=== PATIENT | female | born 1955 | race Caucasian/White ===

== ENCOUNTER 2019-01-15 05:37 | Observation (INO) | payer BC ==
[2019-01-05 11:27] VITALS: BMI 34.1
[2019-01-15] VITALS (26 sets, daily range): BP systolic 102–137; BP diastolic 55–76; PULSE 60–100; RESP 14–21; Ht 162.6 cm; Wt 89.2 kg
[~2019-01-15] VITALS: Ht 162.6 cm; Wt 89.2 kg
[~2019-01-15 05:37] MED LIST: ACETAMINOPHEN 500 MG TAB PO ONE; CEFAZOLIN 2 GM/50 ML (PMX) 50 ML IVPB ONE; DEXAMETHASONE 4 MG/ML 1 ML INJ IV ONE; LACTATED RINGER'S 1,000 ML IV SCH; TRANEXAMIC ACID 1GM/100ML(PMX) 100 ML INTRA-OP X1 IVPB ONE; TRANEXAMIC ACID 1GM/100ML(PMX) 100 ML PRE-OP X1 IVPB ONE
[2019-01-15] MEDS ORDERED: ACETAMINOPHEN 1000MG/100ML IV 100 ML IVPB ONE (06:00)
[2019-01-15] MEDS ORDERED: TRANEXAMIC ACID 1GM/100ML(PMX) 200 ML ONE (07:04)
[2019-01-15] MEDS ORDERED: POLYMYXIN B 500000 UNIT INJ ONE (07:04)
--- NOTE | 2019-01-15 07:27 | PREAC ---
Date/Time of Note Date/Time of Note DATE: 01/15/19 TIME: 07:26 Anesthesia Eval and Record Evaluation Time Pre-Procedure Interview DATE: 01/15/19 TIME: 07:26 Age 63 Sex female NPO: 8 hrs Preoperative diagnosis right knee osteoarthitis Planned procedure right total total knee replacement Past Medical History Past Medical History: None Surgery & Anesthesia Issues No known issue Meds Anticoagulation: No Beta Surjit within 24 hr: No Reason Beta Surjit not given: Pt. not on B-Surjit No Active Prescriptions or Reported Meds Current Medications Lactated Ringer's 1,000 ml @ 125 mls/hr Q8H IV Last administered on 01/15/19at 06:22; Admin Dose 125 MLS/HR; Start 01/15/19 at 05:30; Stop 01/15/19 at 13:29 Meds reviewed: Yes Allergies Coded Allergies: codeine (Verified Adverse Reaction, Unknown, constipation, sick feeling, 01/15/19) Allergies Reviewed: Yes Labs/Studies Labs Reviewed: Reviewed by anesthesiologist Blood Bank Test 01/15/19 06:14 Antibody Screen NEGATIVE Blood Type A POSITIVE test: N/A Pre-procedure Exam Last vitals Vital Signs Date Temp Pulse Resp B/P (MAP) Pulse Ox O2 O2 Flow FiO2 Time Delivery Rate 01/15/19 97.9 73 18 137/64 95 Room Air 06:36 (88) Airway: Adequate mouth opening, Adequate thyromental dist Mallampati: Mallampati IV Teeth: Normal Lung: Normal Heart: Normal ASA Physical Status ASA physical status: 1 Emergency: None Pre-operative Attestations Prior to commencing anesthesia and surgery, the patient was re-evaluated, there was verification of: *The patient's identity *The results of appropriate recent lab work and preoperative vital signs *The above evaluation not changing prior to induction *Anesthetic plan, risk benefits, alternative and complications discussed with patient/family; questions answered; patient/family understands, accepts and wishes to proceed. REKHA ROSENBAUM DO Jan 15, 2019 07:27
[2019-01-15] MEDS ORDERED: PROPOFOL 20 ML ONE (07:29)
[2019-01-15] MEDS ORDERED: ETOMIDATE 20 MG INJ ONE (07:29)
[2019-01-15] MEDS ORDERED: MIDAZOLAM 1 MG/ML 2 ML INJ ONE (07:29)
[2019-01-15] MEDS ORDERED: HYDROmorphONE 1 MG/5 ML IV SYRINGE IV PRN ×3 (07:30)
[2019-01-15] MEDS ORDERED: FENTAnyl 50 MCG/ML VIAL ONE (07:30)
[2019-01-15] MEDS ORDERED: LIDOCAINE 1% (MDV) 20 ML INJ ONE (07:30)
--- NOTE | 2019-01-15 07:30 | HPN ---
Date/Time of Note Date/Time of Note DATE: 01/15/19 TIME: 07:30 Interval H&P Admission Note Pt. seen H&P reviewed: No system changes DULCE MARIA SCHRADER Jan 15, 2019 07:30
[2019-01-15] MEDS ORDERED: CEFAZOLIN 1 GM INJ ONE (07:54)
[2019-01-15] MEDS ORDERED: DEXAMETHASONE 4 MG/ML 5 ML INJ ONE (07:54)
[2019-01-15] MEDS ORDERED: ONDANSETRON 4 MG INJ ONE (07:54)
[2019-01-15] MEDS ORDERED: POLYMYXIN B 500000 UNIT INJ IRR ONE (08:14)
[2019-01-15] MEDS ORDERED: BACITRACIN 50000 UNITS INJ IRR ONE (08:14)
[2019-01-15] MEDS ORDERED: ROPIVACAINE 0.5 % 30 ML VIAL ONE (08:58)
[2019-01-15] MEDS ORDERED: EPHEDrine 25 MG/5 ML SYG ONE (09:02)
[2019-01-15] MEDS ORDERED: PHENYLephrine (100 MCG/ML) 10ML SYG ONE (09:02)
--- NOTE | 2019-01-15 09:04 | SIPON ---
Date/Time of Note Date/Time of Note DATE: 01/15/19 TIME: 09:03 Operative Report Preoperative Diagnosis Right knee osteoarthritis Postoperative Diagnosis Same Operation/Procedure Performed Right total knee replacement Surgeon see signature line financial assistance specialist Dav Ruano Anesthesia: spinal Estimated blood loss: 150 - 200 ml's Transfusion Required none Specimen None Grafts/Implants Attune knee, size 6 femur, size 5 tibia, 7 polyethylene and 35 patella Complications none DULCE MARIA SCHRADER Jan 15, 2019 09:04
[2019-01-15] MEDS: LACTATED RINGER'S 1,000 ML IV SCH ×2 (09:08→18:15)
--- NOTE | 2019-01-15 09:08 | OPR ---
Date/Time of Note Date/Time of Note DATE: 01/15/19 TIME: 09:04 Operative Report Procedure Date: Jan 15, 2019 Preoperative Diagnosis Right knee osteoarthritis Postoperative Diagnosis Same Operation/Procedure Performed Right total knee replacement Surgeon see signature line Stenciler Dav Ruano Anesthesia Type: spinal Estimated Blood Loss: 150 - 200 ml's Transfusion none Specimen Bone Grafts/Implants Attune knee, size 6 femur, size 5 tibia, 7 mm polyethylene and 35 patella Tubes/Drains None Complications none Pt Condition Post Procedure: stable Disposition: PACU Indications The patient is a 63-year-old female with advanced osteoarthritis of her right knee Procedure Description Patient was placed supine on the operating room table. Patient was given preoperative antibiotics. The right knee was prepped and draped in usual manner. An anterior incision was made. A mid vastus approach was used in the knee exposed. The patella was displaced laterally without everting it. Using intramedullary alignment, the distal femoral cut was made in 5 degrees of valgus. The femur was measured to be a size 6 from the attune knee system. Anterior posterior and chamfer cuts were made. A notch was cut in the distal femur to accommodate the posterior stabilized femoral component. The PCL was sacrificed and remnants of the menisci were removed. The tibia was cut using external alignment of the patella cut using a freehand technique. Trials were inserted including a 6 femur, 5 tibia, 7 mm of polyethylene and 35 patella. This resulted in a stable knee from 0 to 120 degrees with good balance and tracking. X-rays confirm proper alignment of the implants. Once satisfactory alignment was confirmed the trials were removed. The knee was thoroughly irrigated and dried. Osteophytes were removed. Final components were cemented in place including a 6 narrow femur, 5 tibia, 35 patella and 7 mm of polyethylene excess cement was removed and the knee injected with pain cocktail. Hemostasis was confirmed with aqua Mantis. The wound was closed in layers using #1 strata fix for deep fascia, 2-0 Vicryl for subcutaneous tissue and 3-0 Monocryl for the skin. Patient was transferred to the recovery room in stable condition DULCE MARIA SCHRADER Jan 15, 2019 09:08
[2019-01-15] MEDS ORDERED: NACL 0.9% 3 ML SYG IV SCH (09:30)
[2019-01-15] MEDS ORDERED: MAGNESIUM HYDROXIDE 30ML CUP PO PRN (09:30)
[2019-01-15] MEDS ORDERED: oxyCODONE 5 MG TAB PO PRN (09:30)
[2019-01-15] MEDS ORDERED: KETOROLAC 15 MG INJ IV PRN (09:30)
[2019-01-15] MEDS ORDERED: NALOXONE (0.4 MG/ML) INJ IV PRN (09:30)
[2019-01-15] MEDS: CEFAZOLIN 2 GM/50 ML (PMX) 50 ML IVPB SCH ×2 (10:31→18:14)
[2019-01-15] MEDS: GABAPENTIN 100 MG CAP PO SCH ×2 (13:30→21:55)
--- NOTE | 2019-01-15 13:52 | HP ---
Date/Time of Note Date/Time of Note DATE: 01/15/19 TIME: 13:35 Assessment/Plan VTE Prophylaxis SCD applied (from Nsg): Yes Pharmacological prophylaxis: NA/contraindicated Pharm contraindication: surgical contra Lines/Catheters IV Catheter Type (from Nrsg): Peripheral IV Assessment/Plan Assessment/Plan -Right knee osteoarthritis, status post right total knee replacement by Dr. Mullins. Continue postoperative antibiotic. Continue oral oxycodone and Toradol as needed for pain and Zofran as needed for nausea. Physical therapy. -Chronic low back pain -Obesity with BMI of 33.8 Further recommendations based on clinical course. Plan of care discussed with Dr. Ovalle. HPI/ROS Admit Date/Time Admit Date/Time Jan 15, 2019 at 09:39 Hx of Present Illness The patient is a 63-year-old pleasant female with history of advanced osteoarthritis of the right knee. Patient denies any chronic condition except for chronic lower back pain and osteoarthritis for which she takes ibuprofen occasionally. Patient was brought to the hospital and underwent a right total knee replacement by Dr. Mullins. Postoperatively patient experiencing moderate pain and patient is admitted for further evaluation and management. ROS Constitutional: no complaints Respiratory: no complaints Cardiovascular: no complaints Gastrointestinal: no complaints Genitourinary: no complaints Skin: no complaints Neurologic: no complaints Endocrine: no complaints PMH/Family/Social Past Medical History Medical History: other (Osteoarthritis, chronic back pain, obesity) Medications Current Medications Hydromorphone HCl (Dilaudid) 0.2 mg PACU PRN IV MILD PAIN 1-3; Start 01/15/19 at 07:30; Stop 01/15/19 at 16:00 Hydromorphone HCl (Dilaudid) 0.4 mg PACU PRN IV MOD PAIN 4-6; Start 01/15/19 at 07:30; Stop 01/15/19 at 16:00 Hydromorphone HCl (Dilaudid) 0.6 mg PACU PRN IV SEVERE PAIN 7-10; Start 01/15/19 at 07:30; Stop 01/15/19 at 16:00 Lactated Ringer's 1,000 ml @ 80 mls/hr [id number] IV ; Start 01/15/19 at 09:08 IV Flush (NS 3 ml) 3 ml PER PROTOCOL IV ; Start 01/15/19 at 09:30 Oxycodone HCl (Roxicodone) 10 mg Q4H PRN PO .PAIN; Start 01/15/19 at 09:30 Oxycodone HCl (Roxicodone) 5 mg Q4H PRN PO .PAIN; Start 01/15/19 at 09:30 Ketorolac Tromethamine (Toradol) 15 mg Q6H PRN IV .PAIN Last administered on 01/15/19at 12:42; Admin Dose 15 MG; Start 01/15/19 at 09:30; Stop 01/17/19 at 09:29 Ondansetron HCl (Zofran Inj) 4 mg Q4H PRN IV NAUSEA/VOMITING; Start 01/16/19 at 09:30 Cefazolin Sodium/ Dextrose 50 ml @ 100 mls/hr Q8H IVPB Last administered on 01/15/19at 10:31; Admin Dose 100 MLS/HR; Start 01/15/19 at 09:30; Stop 01/15/19 at 17:59 Celecoxib (Celebrex) 100 mg BID PO ; Start 01/16/19 at 09:00 Gabapentin (Neurontin) 100 mg TID PO Last administered on 01/15/19at 13:30; Admin Dose 100 MG; Start 01/15/19 at 13:00 Pantoprazole (Protonix Tab) 40 mg DAILY@06 PO ; Start 01/17/19 at 06:00 Docusate Sodium (Colace) 200 mg BID PO ; Start 01/16/19 at 09:00; Stop 01/19/19 at 08:59 Magnesium Hydroxide (Milk Of Mag) 30 ml HS PRN PO .CONSTIPATION; Start 01/15/19 at 09:30 Naloxone HCl (Narcan) 0.2 mg Q2M PRN IV .RESP RATE; Start 01/15/19 at 09:30 Aspirin (Halfprin) 81 mg BID PO ; Start 01/16/19 at 09:00 Coded Allergies: codeine (Verified Adverse Reaction, Unknown, constipation, sick feeling, 01/15/19) Past Surgical History Past Surgical Hx: other (Let us post right knee surgery for meniscal tear, status post cataract surgery, status post cholecystectomy) Family History Significant Family History: no pertinent family hx Social History Alcohol Use: none Smoking Status: Never smoker Drug Use: none Exam/Review of Systems Vital Signs Vitals Vital Signs Date Temp Pulse Resp B/P (MAP) Pulse Ox O2 O2 Flow FiO2 Time Delivery Rate 01/15/19 98.2 70 15 125/61 96 Nasal 2.0 10:45 (82) Cannula Exam Constitutional: alert, oriented Neck: supple Respiratory: clear to auscultation Cardiovascular: nl pulses Gastrointestinal: soft, non-tender Musculoskeletal: nl extremities to inspection, other (Status post total right knee replacement) Extremities: normal pulses Neurological: nl mental status HAYLEY ANDRADE Jan 15, 2019 13:45
[2019-01-15] MEDS: oxyCODONE 5 MG TAB PO PRN ×2 (17:42→21:55)
--- NOTE | 2019-01-16 02:55 | PN ---
Date/Time of Note Date/Time of Note DATE: 01/16/19 TIME: 02:55 Assessment/Plan VTE Prophylaxis Risk score (from Nsg)>0 risk: 12 SCD applied (from Nsg): Yes Lines/Catheters IV Catheter Type (from Nrsg): Peripheral IV Assessment/Plan Assessment/Plan -Right knee osteoarthritis, status post right total knee replacement by Dr. Mullins. Continue postoperative antibiotic. Continue oral oxycodone and Toradol as needed for pain and Zofran as needed for nausea. Physical therapy. -Chronic low back pain -Obesity with BMI of 33.8 Further recommendations based on clinical course. Plan of care discussed with Dr. Ovalle. Exam/Review of Systems Exam Vitals Vital Signs Date Temp Pulse Resp B/P (MAP) Pulse Ox O2 O2 Flow FiO2 Time Delivery Rate 01/15/19 98.4 87 18 102/55 95 23:40 (71) 01/15/19 Nasal 2.0 20:00 Cannula Intake and Output 01/15/19 01/15/19 01/16/19 1515:00 23:00 07:00 IntakeIntake Total 2600 ml 1250 ml 400 ml OutputOutput Total 300 ml BalanceBalance 2300 ml 1250 ml 400 ml Medications Medication Current Medications Lactated Ringer's 1,000 ml @ 80 mls/hr [id number] IV Last administered on 01/15/19at 18:15; Admin Dose 80 MLS/HR; Start 01/15/19 at 09:08 IV Flush (NS 3 ml) 3 ml PER PROTOCOL IV ; Start 01/15/19 at 09:30 Oxycodone HCl (Roxicodone) 10 mg Q4H PRN PO .PAIN Last administered on 01/15/19at 21:55; Admin Dose 10 MG; Start 01/15/19 at 09:30 Oxycodone HCl (Roxicodone) 5 mg Q4H PRN PO .PAIN Last administered on 01/15/19at 13:34; Admin Dose 5 MG; Start 01/15/19 at 09:30 Ketorolac Tromethamine (Toradol) 15 mg Q6H PRN IV .PAIN Last administered on 01/15/19at 12:42; Admin Dose 15 MG; Start 01/15/19 at 09:30; Stop 01/17/19 at 09:29 Ondansetron HCl (Zofran Inj) 4 mg Q4H PRN IV NAUSEA/VOMITING; Start 01/16/19 at 09:30 Celecoxib (Celebrex) 100 mg BID PO ; Start 01/16/19 at 09:00 Gabapentin (Neurontin) 100 mg TID PO Last administered on 01/15/19at 21:55; Admin Dose 100 MG; Start 01/15/19 at 13:00 Pantoprazole (Protonix Tab) 40 mg DAILY@06 PO ; Start 01/17/19 at 06:00 Docusate Sodium (Colace) 200 mg BID PO ; Start 01/16/19 at 09:00; Stop 01/19/19 at 08:59 Magnesium Hydroxide (Milk Of Mag) 30 ml HS PRN PO .CONSTIPATION; Start 01/15/19 at 09:30 Naloxone HCl (Narcan) 0.2 mg Q2M PRN IV .RESP RATE; Start 01/15/19 at 09:30 Aspirin (Halfprin) 81 mg BID PO ; Start 01/16/19 at 09:00 GRACIELA BOATENG Jan 16, 2019 02:55
[2019-01-16 07:24] VITALS: BP 127/59; PULSE 78; RESP 18
[2019-01-16] MEDS ORDERED: ASPIRIN (EC) 81 MG TAB PO SCH (09:00)
[2019-01-16] MEDS ORDERED: DOCUSATE SODIUM 100 MG CAP PO SCH (09:00)
[2019-01-16] MEDS ORDERED: CELECOXIB 100 MG CAP PO SCH (09:00)
[2019-01-16] MEDS ORDERED: ONDANSETRON 4 MG INJ IV PRN (09:30)
[2019-01-16] MEDS: GABAPENTIN 100 MG CAP PO SCH ×2 (10:07→13:24)
[2019-01-16] MEDS: LACTATED RINGER'S 1,000 ML IV SCH (10:08)
[2019-01-16] MEDS: oxyCODONE 5 MG TAB PO PRN ×2 (10:13→14:15)
[2019-01-16 15:04] VITALS: BP 116/56; PULSE 83; RESP 18
[2019-01-17] MEDS ORDERED: PANTOPRAZOLE (EC) 40 MG TAB PO SCH (06:00)
== END 2019-01-16 16:30 | disposition home health service (06) ==
LOC: SDS 05:37 → REC 09:39 → EDSTATUS 10:30 → MS1 10:35
PROVIDERS: ADMIT Orthopaedic Surgery; ATTEND Orthopaedic Surgery
DX: M17.11 Unilateral primary osteoarthritis, right knee (principal); G89.29 Other chronic pain; M54.5 Low back pain; E66.9 Obesity, unspecified; Z68.33 Body mass index [BMI] 33.0-33.9, adult
CPT/HCPCS: 27447; 73560; 80048; 85025; 86850; 86900; 86901; 87081; 88304; 88311; 97110; 97116; 97161; 97530; C1776; G0378; J0131; J0171; J0690; J1100; J1885; J2250; J2370; J2405; J2795; J3010; J7120